=== PATIENT | female | born 1965 | race Caucasian/White ===

== ENCOUNTER 2019-08-02 05:37 | Day surgery (SDC) | payer OTHER ==
[2019-07-30 13:40] VITALS: BMI 28.0
--- NOTE | 2019-08-02 06:59 | HP ---
CHIEF COMPLAINT: PCP: Primary Psychiatrist: HISTORY OF PRESENT ILLNESS: Recent Events: PAST MEDICAL HISTORY: PAST SURGICAL HISTORY: Social History: Smoking: Alcohol: Drugs: Allergies No Known Drug Allergies Allergy (Verified 07/30/19 13:15) HOME MEDICATIONS: Home Medications Medication Instructions Recorded Biotin/Calcium Carbonate [Biotin 1 each PO DAILY 07/30/19 800 Mcg Tablet] Cholecalciferol (Vitamin D3) 50,000 unit PO WEEKLY 07/30/19 [D3-50] Cyanocobalamin (Vitamin B-12) 2,500 mcg PO DAILY 07/30/19 [Vitamin B12] Lamotrigine [Lamictal] 200 mg PO DAILY 07/30/19 [place] Carbonate [Eskalith -] 150 mg PO WEEKLY 07/30/19 Multivitamin/Iron/Folic Acid 1 each PO DAILY 07/30/19 [Centrum Women Tablet] Omeprazole 40 mg PO DAILY 07/30/19 Pramipexole Di-HCl [Mirapex] 0.25 mg PO DAILY 07/30/19 Pyridoxine HCl (B-6) [Vitamin B6] 100 mg PO DAILY 07/30/19 REVIEW OF SYSTEMS CONSTITUTIONAL: Absent: fever, chills, diaphoresis, generalized weakness, malaise, loss of appetite, weight change HEENT: Absent: rhinorrhea, nasal congestion, throat pain, throat swelling, difficulty swallowing, mouth swelling, ear pain, eye pain, visual changes CARDIOVASCULAR: Absent: chest pain, syncope, palpitations, irregular heart rate, lightheadedness , peripheral edema RESPIRATORY: Absent: cough, shortness of breath, dyspnea with exertion, orthopnea, wheezing, stridor, hemoptysis GASTROINTESTINAL: Absent: abdominal pain, abdominal distension, nausea, vomiting, diarrhea, constipation, melena, hematochezia GENITOURINARY: Absent: dysuria, frequency, urgency, hesitancy, hematuria, flank pain, genital pain MUSCULOSKELETAL: Absent: myalgia, arthralgia, joint swelling, back pain, neck pain SKIN: Absent: rash, itching, pallor HEMATOLOGIC/IMMUNOLOGIC: Absent: easy bleeding, easy bruising, lymphadenopathy, frequent infections ENDOCRINE: Absent: unexplained weight gain, unexplained weight loss, heat intolerance, cold intolerance NEUROLOGIC: Absent: headache, focal weakness or paresthesias, dizziness, unsteady gait, seizure, mental status changes, bladder or bowel incontinence PHYSICAL EXAMINATION GENERAL: Awake, alert, and fully oriented, in no acute distress. HEAD: Normal with no signs of trauma. EYES: Pupils equal, round and reactive to light, sclera anicteric, conjunctiva clear. LUNGS: Breath sounds equal, clear to auscultation bilaterally. No wheezes, and no crackles. No accessory muscle use. HEART: Regular rate and rhythm, normal S1 and S2 ABDOMEN: Soft, nontender, not distended MUSCULOSKELETAL: Normal range of motion at all joints. No bony deformities or tenderness. No CVA tenderness. UPPER EXTREMITIES: 2+ pulses, warm, well-perfused. No cyanosis. No clubbing. No peripheral edema. LOWER EXTREMITIES: 2+ pulses, warm, well-perfused. No calf tenderness. No peripheral edema. NEUROLOGICAL: Cranial nerves II-XII intact. Normal speech. ASSESSMENT/PLAN: Cardiac --no cardiac history --Revised Cardiac Risk Index for Pre-Operative Risk: 0 points, 0.4% risk of major cardiac event Pulmonary --no pulmonary history Neurological --no neurological or neurosurgical history; no history of trauma Anesthesia --no reported problems with anesthesia ECT is a low risk procedure. The relative benefits of the planned procedure outweigh the relative risks for this patient at this time.
[2019-08-02] MEDS ORDERED: ONDANSETRON 4 MG/2 ML VIAL IVPUSH PRN (07:24)
[2019-08-02] MEDS ORDERED: MIDAZOLAM HCL 2 MG/2 ML SINGLE DOSE VIAL ONE (07:58)
[2019-08-02 08:11] VITALS: TEMP 98
[2019-08-02 09:45] VITALS: BP 115/71; PULSE 84
== END 2019-08-02 09:25 | disposition home or self-care (01) ==
LOC: FECT 05:37
PROVIDERS: ATTEND Psychiatry & Neurology Psychiatry
PROC: GZB4ZZZ Other Electroconvulsive Therapy (ICD-10-PCS; principal; 2019-08-02 07:15)
DX: F32.9 Major depressive disorder, single episode, unspecified (principal)
CPT/HCPCS: 90870; 94760

== ENCOUNTER 2019-08-07 06:09 | Day surgery (SDC) | payer OTHER ==
[2019-08-06 14:23] VITALS: BMI 28.0
[2019-08-07 06:59] VITALS: TEMP 98.3
[2019-08-07] MEDS ORDERED: LACTATED RINGERS SOLUTION 1,000 ML IV SCH (07:00)
[2019-08-07 08:53] VITALS: BP 112/72; PULSE 71
--- NOTE | 2019-08-08 15:57 | HP ---
CHIEF COMPLAINT: Bipolar disorder Primary Psychiatrist: HISTORY OF PRESENT ILLNESS: 54 year-old female with a PMH significant for GERD, RLS, MARILEE, hyperthyroidism, polycystic ovarian disease and bipolar disorder. Patient has undergone several hundred ECT sessions in the past. Today is her first session at [place]. Recent Events: * none reported PAST MEDICAL HISTORY: GERD Restless leg syndrome Bipolar disorder MARILEE Hyperthyroidism Polycystic ovarian disease PAST SURGICAL HISTORY: Gastric sleeve 2015 Social History: Smoking: former; quit >30 years ago Alcohol: rare Drugs: no Allergies No Known Drug Allergies Allergy (Verified 07/30/19 13:15) HOME MEDICATIONS: Home Medications Medication Instructions Recorded Biotin/Calcium Carbonate [Biotin 1 each PO DAILY 07/30/19 800 Mcg Tablet] Cholecalciferol (Vitamin D3) 50,000 unit PO WEEKLY 07/30/19 [D3-50] Cyanocobalamin (Vitamin B-12) 2,500 mcg PO DAILY 07/30/19 [Vitamin B12] Lamotrigine [Lamictal] 200 mg PO DAILY 07/30/19 [place] Carbonate [Eskalith -] 150 mg PO WEEKLY 07/30/19 Multivitamin/Iron/Folic Acid 1 each PO DAILY 07/30/19 [Centrum Women Tablet] Omeprazole 40 mg PO DAILY 07/30/19 Pramipexole Di-HCl [Mirapex] 0.25 mg PO DAILY 07/30/19 Pyridoxine HCl (B-6) [Vitamin B6 -] 100 mg PO DAILY 07/30/19 REVIEW OF SYSTEMS CONSTITUTIONAL: Absent: fever, chills, diaphoresis, generalized weakness, malaise, loss of appetite, weight change HEENT: Absent: rhinorrhea, nasal congestion, throat pain, throat swelling, difficulty swallowing, mouth swelling, ear pain, eye pain, visual changes CARDIOVASCULAR: Absent: chest pain, syncope, palpitations, irregular heart rate, lightheadedness , peripheral edema RESPIRATORY: Absent: cough, shortness of breath, dyspnea with exertion, orthopnea, wheezing, stridor, hemoptysis GASTROINTESTINAL: Absent: abdominal pain, abdominal distension, nausea, vomiting, diarrhea, constipation, melena, hematochezia GENITOURINARY: Absent: dysuria, frequency, urgency, hesitancy, hematuria, flank pain, genital pain MUSCULOSKELETAL: Absent: myalgia, arthralgia, joint swelling, back pain, neck pain SKIN: Absent: rash, itching, pallor HEMATOLOGIC/IMMUNOLOGIC: Absent: easy bleeding, easy bruising, lymphadenopathy, frequent infections ENDOCRINE: Absent: unexplained weight gain, unexplained weight loss, heat intolerance, cold intolerance NEUROLOGIC: Absent: headache, focal weakness or paresthesias, dizziness, unsteady gait, seizure, mental status changes, bladder or bowel incontinence PHYSICAL EXAMINATION Vital Signs Temperature 98.3 F 08/07/19 08:54 Pulse Rate 71 08/07/19 08:54 Respiratory Rate 18 08/07/19 08:54 Blood Pressure 112/72 08/07/19 08:54 O2 Sat by Pulse Oximetry (%) 99 08/07/19 08:45 GENERAL: Awake, alert, and fully oriented, in no acute distress. HEAD: Normal with no signs of trauma. EYES: Pupils equal, round and reactive to light, sclera anicteric, conjunctiva clear. LUNGS: Breath sounds equal, clear to auscultation bilaterally. No wheezes, and no crackles. No accessory muscle use. HEART: Regular rate and rhythm, normal S1 and S2 ABDOMEN: Soft, nontender, not distended MUSCULOSKELETAL: Normal range of motion at all joints. No bony deformities or tenderness. No CVA tenderness. UPPER EXTREMITIES: 2+ pulses, warm, well-perfused. No cyanosis. No clubbing. No peripheral edema. LOWER EXTREMITIES: 2+ pulses, warm, well-perfused. No calf tenderness. No peripheral edema. NEUROLOGICAL: Cranial nerves II-XII intact. Normal speech. ASSESSMENT/PLAN: 54 year-old female with a PMH significant for GERD, RLS, MARILEE, hyperthyroidism, polycystic ovarian disease and bipolar disorder. Patient has undergone several hundred ECT sessions in the past. Today is her first session at [place]. Cardiac --no cardiac history --Revised Cardiac Risk Index for Pre-Operative Risk: 0 points, 0.4% risk of major cardiac event Pulmonary --no pulmonary history Neurological --no neurological or neurosurgical history; no history of trauma Anesthesia --no reported problems with anesthesia ECT is a low risk procedure. The relative benefits of the planned procedure outweigh the relative risks for this patient at this time. Visit type - Emergency Visit Emergency Visit: No - New Patient This patient is new to me today: Yes Date on this admission: 08/08/19 - Critical Care Critical Care patient: No
== END 2019-08-07 08:55 | disposition home or self-care (01) ==
LOC: FECT 06:09
PROVIDERS: ATTEND Psychiatry & Neurology Psychiatry
PROC: GZB4ZZZ Other Electroconvulsive Therapy (ICD-10-PCS; principal; 2019-08-07 08:15)
DX: F32.9 Major depressive disorder, single episode, unspecified (principal)
CPT/HCPCS: 90870; 94760

== ENCOUNTER 2019-09-13 07:04 | Day surgery (SDC) | payer OTHER ==
[2019-09-13 07:36] VITALS: BMI 28.1
--- NOTE | 2019-09-13 07:41 | HP ---
CHIEF COMPLAINT: Bipolar disorder Primary Psychiatrist: HISTORY OF PRESENT ILLNESS: 54 year-old female with a PMH significant for GERD, RLS, MARILEE, hyperthyroidism, polycystic ovarian disease and bipolar disorder. Patient has undergone several hundred ECT sessions in the past. She presents today for ECT. Recent Events: * none reported PAST MEDICAL HISTORY: GERD Restless leg syndrome Bipolar disorder MARILEE Hyperthyroidism Polycystic ovarian disease PAST SURGICAL HISTORY: Gastric sleeve 2014 Social History: Smoking: former; quit >30 years ago Alcohol: rare Drugs: no Allergies No Known Drug Allergies Allergy (Verified 07/30/19 13:15) HOME MEDICATIONS: Home Medications Medication Instructions Recorded Biotin/Calcium Carbonate [Biotin 1 each PO DAILY 07/30/19 800 Mcg Tablet] Cholecalciferol (Vitamin D3) 50,000 unit PO WEEKLY 07/30/19 [D3-50] Cyanocobalamin (Vitamin B-12) 2,500 mcg PO DAILY 07/30/19 [Vitamin B12] Lamotrigine [Lamictal] 200 mg PO DAILY 07/30/19 [place] Carbonate [Eskalith -] 150 mg PO WEEKLY 07/30/19 Multivitamin/Iron/Folic Acid 1 each PO DAILY 07/30/19 [Centrum Women Tablet] Omeprazole 40 mg PO DAILY 07/30/19 Pramipexole Di-HCl [Mirapex] 0.25 mg PO DAILY 07/30/19 Pyridoxine HCl (B-6) [Vitamin B6 -] 100 mg PO DAILY 07/30/19 REVIEW OF SYSTEMS CONSTITUTIONAL: Absent: fever, chills, diaphoresis, generalized weakness, malaise, loss of appetite, weight change HEENT: Absent: rhinorrhea, nasal congestion, throat pain, throat swelling, difficulty swallowing, mouth swelling, ear pain, eye pain, visual changes CARDIOVASCULAR: Absent: chest pain, syncope, palpitations, irregular heart rate, lightheadedness , peripheral edema RESPIRATORY: Absent: cough, shortness of breath, dyspnea with exertion, orthopnea, wheezing, stridor, hemoptysis GASTROINTESTINAL: Absent: abdominal pain, abdominal distension, nausea, vomiting, diarrhea, constipation, melena, hematochezia GENITOURINARY: Absent: dysuria, frequency, urgency, hesitancy, hematuria, flank pain, genital pain MUSCULOSKELETAL: Absent: myalgia, arthralgia, joint swelling, back pain, neck pain SKIN: Absent: rash, itching, pallor HEMATOLOGIC/IMMUNOLOGIC: Absent: easy bleeding, easy bruising, lymphadenopathy, frequent infections ENDOCRINE: Absent: unexplained weight gain, unexplained weight loss, heat intolerance, cold intolerance NEUROLOGIC: Absent: headache, focal weakness or paresthesias, dizziness, unsteady gait, seizure, mental status changes, bladder or bowel incontinence PHYSICAL EXAMINATION Vital Signs - 24 hr 09/13/19 07:22 Temperature 98.4 F Pulse Rate 63 Respiratory 18 Rate Blood Pressure 112/66 GENERAL: Awake, alert, and fully oriented, in no acute distress. HEAD: Normal with no signs of trauma. EYES: Pupils equal, round and reactive to light, sclera anicteric, conjunctiva clear. LUNGS: Breath sounds equal, clear to auscultation bilaterally. No wheezes, and no crackles. No accessory muscle use. HEART: Regular rate and rhythm, normal S1 and S2 ABDOMEN: Soft, nontender, not distended MUSCULOSKELETAL: Normal range of motion at all joints. No bony deformities or tenderness. No CVA tenderness. UPPER EXTREMITIES: 2+ pulses, warm, well-perfused. No cyanosis. No clubbing. No peripheral edema. LOWER EXTREMITIES: 2+ pulses, warm, well-perfused. No calf tenderness. No peripheral edema. NEUROLOGICAL: Cranial nerves II-XII intact. Normal speech. ASSESSMENT/PLAN: 54 year-old female with a PMH significant for GERD, RLS, MARILEE, hyperthyroidism, polycystic ovarian disease and bipolar disorder. Patient has undergone several hundred ECT sessions in the past. She presents today for ECT. Cardiac --no cardiac history --Revised Cardiac Risk Index for Pre-Operative Risk: 0 points, 0.4% risk of major cardiac event Pulmonary --no pulmonary history Neurological --no neurological or neurosurgical history; no history of trauma Anesthesia --no reported problems with anesthesia ECT is a low risk procedure. The relative benefits of the planned procedure outweigh the relative risks for this patient at this time. Visit type - Emergency Visit Emergency Visit: No - New Patient This patient is new to me today: Yes Date on this admission: 09/13/19 - Critical Care Critical Care patient: No
[2019-09-13] MEDS ORDERED: ONDANSETRON 4 MG/2 ML VIAL IVPUSH PRN (08:46)
[2019-09-13] MEDS ORDERED: LACTATED RINGERS SOLUTION 1,000 ML IV SCH (09:00)
[2019-09-13 09:45] VITALS: BP 108/61; PULSE 61; TEMP 98
== END 2019-09-13 09:45 | disposition home or self-care (01) ==
LOC: FECT 07:04
PROVIDERS: ATTEND Psychiatry & Neurology Psychiatry
PROC: GZB4ZZZ Other Electroconvulsive Therapy (ICD-10-PCS; principal; 2019-09-13 07:30)
DX: F31.30 Bipolar disorder, current episode depressed, mild or moderate severity, unspecified (principal)
CPT/HCPCS: 90870; 94760

== ENCOUNTER 2019-10-25 21:20 | Emergency (ER) | payer OTHER ==
[2019-10-25 21:33] VITALS: BP 112/70; PULSE 72; TEMP 98.8; BMI 28.9
[2019-10-25] MEDS ORDERED: ALBUTEROL SO4 0.083% IH SOL 2.5 MG/3 ML VIAL.NEB. NEB ONE (21:45)
--- NOTE | 2019-10-25 22:08 | PDOC ---
Documentation entered by Jojo Azul SCRIBE, acting as scribe for Fermin Krishnamurthy MD. Fermin Krishnamurthy MD: This documentation has been prepared by the Jorge Alberto guerrero Torie, SCRIBE, under my direction and personally reviewed by me in its entirety. I confirm that the documentation accurately reflects all work, treatment, procedures, and medical decision making performed by me. History of Present Illness - General Chief Complaint: Respiratory Stated Complaint: COUGH Time Seen by Provider: 10/25/19 21:41 History Source: Patient Exam Limitations: No Limitations - History of Present Illness Initial Comments: 10/25/19 21:58 Patient is a 54 year old female with no significant medical history who presents to the ED today with a cough that began 3 days ago. Patient reports she went to an urgent care yesterday and was given a z-pack, reports no relief thus far.Patient also reports some wheezing. General: No fevers or chills, no weakness, no weight loss HEENT: No change in vision. No sore throat,. No ear pain CardioVascular: No chest pain or shortness of breath Respiratory: +cough, +wheezing. Gastrointestinal: no nausea, vomiting, diarrhea or constipation, No rectal bleeding Genitourinary: No dysuria, hematuria, or frequency Musculoskeletal: No joint or muscle pain or swelling Neurologic: No headache, vertigo, dizziness or loss of consciousness Psychiatric: nor depression Skin: No rashes or easy bruising Endocrine: no increased thirst or abnormal weight change Allergic: no skin or latex allergy All other systems reviewed and normal Adult Exam: General: Well-nourished well-developed individual, no acute distress HEENT: Throat: Normal, tonsils normal, no erythema or exudate Neck: Supple, no meningeal signs, no lymphadenopathy Eyes::Pupils equal reactive and round, extraocular motion intact Chest: Pain reproduced on the palpation of the right lower and anterior chest wall. No lesions, swelling, bruising, or visual abnormalities. Cardiac: S1-S2 normal, regular rate and rhythm, no murmurs rubs or gallops Respiratory: Lungs clear to auscultation bilateral Abdomen: Soft, nondistended, normal bowel sounds, nontender to palpation diffusely Extremities: Warm, dry, no cyanosis, clubbing, or edema Skin: No rashes Neuro: Alert and oriented x3, nonfocal exam, grossly intact, normal gait Psych: Normal mood and affect Assessment and plan: This is a 54-year-old female who comes in complaining of cough x3 days. Patient is already on a Z-Jaiden and has some cough medication. However patient says she did have some wheezing earlier there was no wheezing on my exam in the ED but patient was given a nebulizer treatment and discharged with a inhaler. Past History - Past Medical History Allergies/Adverse Reactions: Allergies Allergy/AdvReac Type Severity Reaction Status Date / Time No Known Drug Allergies Allergy Verified 07/30/19 13:15 Home Medications: Ambulatory Orders Biotin/Calcium Carbonate [Biotin 800 Mcg Tablet] 1 each PO DAILY 07/30/19 Cholecalciferol (Vitamin D3) [D3-50] 50,000 unit PO WEEKLY 07/30/19 Cyanocobalamin (Vitamin B-12) [Vitamin B12] 2,500 mcg PO DAILY 07/30/19 Lamotrigine [Lamictal] 200 mg PO DAILY 07/30/19 [place] Carbonate [Eskalith -] 150 mg PO WEEKLY 07/30/19 Multivitamin/Iron/Folic Acid [Centrum Women Tablet] 1 each PO DAILY 07/30/19 Omeprazole 40 mg PO DAILY 07/30/19 Pramipexole Di-HCl [Mirapex] 0.25 mg PO DAILY 07/30/19 Pyridoxine HCl (B-6) [Vitamin B6 -] 100 mg PO DAILY 07/30/19 Albuterol Sulfate Inhaler - [Ventolin HFA Inhaler -] 1 - 2 inh PO QID #1 inhaler 10/25/19 Azithromycin 250 mg PO DAILY 10/25/19 Cancer: No Cardiac Disorders: No COPD: No Diabetes: No Psychiatric Problems: Yes Seizures: No Thyroid Disease: No - Surgical History Abdominal Surgery: Yes (WEIGHT LOSS) - Psycho Social/Smoking Cessation Hx Smoking History: Never smoked Have you smoked in the past 12 months: No If you are a former smoker, when did you quit?: VERY RARE IN HER 20S Hx Alcohol Use: Yes (VERY RARE) Drug/Substance Use Hx: No Substance Use Type: Alcohol Hx Substance Use Treatment: No *Physical Exam - Vital Signs Last Vital Signs Temp Pulse Resp BP Pulse Ox 98.8 F 72 18 112/70 98 10/25/19 21:24 10/25/19 21:24 10/25/19 21:24 10/25/19 21:24 10/25/19 21:24 Discharge - Discharge Information Problems reviewed: Yes Clinical Impression/Diagnosis: Viral upper respiratory infection Condition: Stable Disposition: HOME - Admission No - Additional Discharge Information Prescriptions: Albuterol Sulfate Inhaler - [Ventolin HFA Inhaler -] 1 - 2 inh PO QID #1 inhaler - Follow up/Referral Referrals: Ector Murrieta [Primary Care Provider] - - Patient Discharge Instructions Additional Instructions: Take all your medications as prescribed. You can use your inhaler 1 to 2 puffs every 4-6 hours as needed. Tylenol or Motrin for pain or fevers. Return to the emergency department immediately with ANY new, persistent or worsening symptoms. Continue any medications as previously prescribed by your physician. You should follow up with your primary doctor as soon as possible regarding today's emergency department visit. . Please make sure your doctor reviews the results of your emergency evaluation. Thank you for coming to the Emergency Department today for your care. It was a pleasure to see you today. Please note that your evaluation is INCOMPLETE until you follow-up with your doctor. - Post Discharge Activity
== END 2019-10-25 22:52 | disposition home or self-care (01) ==
LOC: FER 21:20
DX: J06.9 Acute upper respiratory infection, unspecified (principal); Z98.84 Bariatric surgery status; F99 Mental disorder, not otherwise specified
CPT/HCPCS: 99283-25

== ENCOUNTER 2020-07-28 08:00 | Day surgery (SDC) | payer OTHER ==
[2020-07-25 16:41] VITALS: BMI 30.8
[2020-07-28] MEDS ORDERED: LORazepam 0.5 MG TABLET ONE (08:25)
[2020-07-28 10:32] VITALS: PULSE 74
[2020-07-28 11:09] VITALS: TEMP 98.5
[2020-07-28 11:12] VITALS: BP 113/76
== END 2020-07-28 11:15 | disposition home or self-care (01) ==
LOC: FECT 08:00
PROVIDERS: ATTEND Psychiatry & Neurology Psychiatry
PROC: GZB4ZZZ Other Electroconvulsive Therapy (ICD-10-PCS; principal; 2020-07-28 09:30)
DX: F32.9 Major depressive disorder, single episode, unspecified (principal)
CPT/HCPCS: 90870; 94760; C9803; U0003

== ENCOUNTER 2020-07-31 09:36 | Day surgery (SDC) | payer OTHER ==
[2020-07-30 14:00] VITALS: BMI 30.7
[2020-07-31] MEDS ORDERED: KETAMINE HCL 500 MG/10 ML VIAL ONE (10:26)
[2020-07-31] MEDS ORDERED: PROPOFOL 20 ML ONE (10:31)
[2020-07-31] MEDS ORDERED: SUCCINYLCHOLINE CHLORIDE 200 MG/10 ML SYRINGE ONE (10:31)
[2020-07-31] MEDS ORDERED: MIDAZOLAM HCL 2 MG/2 ML SINGLE DOSE VIAL ONE (10:38)
[2020-07-31 11:18] VITALS: TEMP 98.2
[2020-07-31 12:09] VITALS: BP 121/68; PULSE 75
== END 2020-07-31 12:12 | disposition home or self-care (01) ==
LOC: FECT 09:36
PROVIDERS: ATTEND Psychiatry & Neurology Psychiatry
PROC: GZB4ZZZ Other Electroconvulsive Therapy (ICD-10-PCS; principal; 2020-07-31 10:30)
DX: F32.9 Major depressive disorder, single episode, unspecified (principal)
CPT/HCPCS: 90870; 94760; C9803; U0003

== ENCOUNTER → 2020-08-04 | Day surgery (SDC) | payer OTHER ==
[2020-08-01 13:57] VITALS: BMI 28.0
[~2020-08-04] MED LIST: KETAMINE HCL 500 MG/10 ML VIAL ONE
[2020-08-04 14:06] VITALS: TEMP 98.2
[2020-08-04 14:21] VITALS: BP 140/83; PULSE 70
== END | disposition home or self-care (01) ==
LOC: FECT 10:27
PROVIDERS: ATTEND Psychiatry & Neurology Psychiatry
PROC: GZB4ZZZ Other Electroconvulsive Therapy (ICD-10-PCS; principal; 2020-08-04 11:30)
DX: F32.9 Major depressive disorder, single episode, unspecified (principal)
CPT/HCPCS: 90870; 94760; C9803; U0003

== ENCOUNTER 2020-10-02 06:48 | Day surgery (SDC) | payer OTHER ==
[2020-10-02 07:08] VITALS: BMI 28.0
[2020-10-02 07:21] VITALS: TEMP 98
[2020-10-02] MEDS ORDERED: KETAMINE HCL 500 MG/10 ML VIAL ONE (08:06)
[2020-10-02 09:47] VITALS: BP 126/84; PULSE 65
== END 2020-10-02 09:50 | disposition home or self-care (01) ==
LOC: FECT 06:48
PROVIDERS: ATTEND Psychiatry & Neurology Psychiatry
PROC: GZB4ZZZ Other Electroconvulsive Therapy (ICD-10-PCS; principal; 2020-10-02 09:00)
DX: F32.9 Major depressive disorder, single episode, unspecified (principal)
CPT/HCPCS: 90870; 94760

== ENCOUNTER 2020-10-09 05:50 | Day surgery (SDC) | payer OTHER ==
[2020-10-09] MEDS ORDERED: LOCK ITEM NR ONE (06:28)
[2020-10-09 07:00] VITALS: BMI 28.0
[2020-10-09] MEDS ORDERED: KETOROLAC TROMETHAMINE 30 MG/1 ML VIAL ONE (08:04)
[2020-10-09] MEDS ORDERED: KETAMINE HCL 500 MG/10 ML VIAL ONE (08:04)
[2020-10-09 09:09] VITALS: TEMP 98.5
[2020-10-09 09:31] VITALS: BP 122/72; PULSE 69
== END 2020-10-09 09:30 | disposition home or self-care (01) ==
LOC: FECT 05:50
PROVIDERS: ATTEND Psychiatry & Neurology Psychiatry
PROC: GZB4ZZZ Other Electroconvulsive Therapy (ICD-10-PCS; principal; 2020-10-09 08:30)
DX: F32.9 Major depressive disorder, single episode, unspecified (principal)
CPT/HCPCS: 90870; 94760; C9803; U0003

== ENCOUNTER 2020-10-13 07:22 | Day surgery (SDC) | payer OTHER ==
[2020-10-09 10:59] VITALS: BMI 28.0
[2020-10-13] MEDS ORDERED: KETAMINE HCL 500 MG/10 ML VIAL ONE (09:01)
[2020-10-13 10:17] VITALS: TEMP 98.2
[2020-10-13 11:52] VITALS: BP 123/64; PULSE 61
== END 2020-10-13 11:15 | disposition home or self-care (01) ==
LOC: FECT 07:22
PROVIDERS: ATTEND Psychiatry & Neurology Psychiatry
PROC: GZB4ZZZ Other Electroconvulsive Therapy (ICD-10-PCS; principal; 2020-10-13 09:30)
DX: F32.9 Major depressive disorder, single episode, unspecified (principal)
CPT/HCPCS: 90870; 94760

== ENCOUNTER 2021-06-22 10:01 | Day surgery (SDC) | payer OTHER ==
[2021-06-15 10:11] VITALS: BMI 32.9
[2021-06-22 10:48] VITALS: TEMP 97.4
[2021-06-22] MEDS ORDERED: KETAMINE HCL 500 MG/10 ML VIAL ONE (11:18)
[2021-06-22 13:00] VITALS: BP 119/77; PULSE 61
== END 2021-06-22 12:45 | disposition home or self-care (01) ==
LOC: FECT 10:01
PROVIDERS: ATTEND Psychiatry & Neurology Psychiatry
PROC: GZB4ZZZ Other Electroconvulsive Therapy (ICD-10-PCS; principal; 2021-06-22 12:00)
DX: F32.9 Major depressive disorder, single episode, unspecified (principal)
CPT/HCPCS: 90870; 94760; C9803; U0003; U0005

== ENCOUNTER 2021-06-25 06:33 | Day surgery (SDC) | payer OTHER ==
[2021-06-23 14:59] VITALS: BMI 32.9
[2021-06-25] MEDS ORDERED: KETAMINE HCL 500 MG/10 ML VIAL ONE (08:12)
[2021-06-25 09:44] VITALS: BP 134/84; PULSE 77; TEMP 97.9
== END 2021-06-25 09:45 | disposition home or self-care (01) ==
LOC: FECT 06:33
PROVIDERS: ATTEND Psychiatry & Neurology Psychiatry
PROC: GZB4ZZZ Other Electroconvulsive Therapy (ICD-10-PCS; principal; 2021-06-25 08:30)
DX: F32.9 Major depressive disorder, single episode, unspecified (principal)
CPT/HCPCS: 90870; 94760

== ENCOUNTER 2021-06-26 06:10 | Day surgery (SDC) | payer OTHER ==
[2021-06-26 07:33] VITALS: BMI 32.9
[2021-06-26] MEDS ORDERED: KETAMINE HCL 500 MG/10 ML VIAL ONE (08:18)
[2021-06-26] MEDS ORDERED: LIDOCAINE HCL/PF 2% SDV 5ML VIAL ONE (08:24)
[2021-06-26 12:52] VITALS: TEMP 98.5
[2021-06-26 12:56] VITALS: BP 118/70; PULSE 68
== END 2021-06-26 09:50 | disposition home or self-care (01) ==
LOC: FECT 06:10
PROVIDERS: ATTEND Psychiatry & Neurology Psychiatry
PROC: GZB4ZZZ Other Electroconvulsive Therapy (ICD-10-PCS; principal; 2021-06-26 08:00)
DX: F32.9 Major depressive disorder, single episode, unspecified (principal)
CPT/HCPCS: 90870; 94760; C9803; U0003; U0005

== ENCOUNTER 2021-06-29 07:06 | Day surgery (SDC) | payer OTHER ==
[2021-06-25 16:38] VITALS: BMI 32.9
[2021-06-29] MEDS ORDERED: KETAMINE HCL 500 MG/10 ML VIAL ONE (08:19)
[2021-06-29] MEDS ORDERED: PROPOFOL 20 ML ONE (08:21)
[2021-06-29] MEDS ORDERED: SUCCINYLCHOLINE CHLORIDE 200 MG/10 ML SYRINGE ONE (08:21)
[2021-06-29] MEDS ORDERED: KETOROLAC TROMETHAMINE 30 MG/1 ML VIAL ONE (08:21)
[2021-06-29] MEDS ORDERED: LIDOCAINE HCL/PF 2% SDV 5ML VIAL ONE (08:23)
[2021-06-29 09:45] VITALS: TEMP 98.1
[2021-06-29 10:20] VITALS: BP 124/76; PULSE 68
== END 2021-06-29 10:24 | disposition home or self-care (01) ==
LOC: FECT 07:06
PROVIDERS: ATTEND Psychiatry & Neurology Psychiatry
PROC: GZB4ZZZ Other Electroconvulsive Therapy (ICD-10-PCS; principal; 2021-06-29 08:30)
DX: F32.9 Major depressive disorder, single episode, unspecified (principal)
CPT/HCPCS: 90870; 94760; C9803; U0003; U0005

== ENCOUNTER 2021-07-02 06:13 | Day surgery (SDC) | payer OTHER ==
[2021-06-25 16:43] VITALS: BMI 32.9
[2021-07-02] MEDS ORDERED: SUCCINYLCHOLINE CHLORIDE 200 MG/10 ML SYRINGE ONE ×2 (07:04)
[2021-07-02 09:20] VITALS: BP 131/89; PULSE 76; TEMP 97.9
== END 2021-07-02 09:20 | disposition home or self-care (01) ==
LOC: FECT 06:13
PROVIDERS: ATTEND Psychiatry & Neurology Psychiatry
PROC: GZB4ZZZ Other Electroconvulsive Therapy (ICD-10-PCS; principal; 2021-07-02 08:00)
DX: F32.9 Major depressive disorder, single episode, unspecified (principal)
CPT/HCPCS: 90870; 94760

== ENCOUNTER 2021-07-03 06:10 | Day surgery (SDC) | payer OTHER ==
[2021-06-29 16:03] VITALS: BMI 32.9
[2021-07-03] MEDS ORDERED: KETAMINE HCL 500 MG/10 ML VIAL ONE (07:22)
[2021-07-03 08:19] VITALS: TEMP 98.7
[2021-07-03 08:41] VITALS: BP 132/74; PULSE 66
== END 2021-07-03 08:45 | disposition home or self-care (01) ==
LOC: FECT 06:10
PROVIDERS: ATTEND Psychiatry & Neurology Psychiatry
PROC: GZB4ZZZ Other Electroconvulsive Therapy (ICD-10-PCS; principal; 2021-07-03 08:00)
DX: F32.9 Major depressive disorder, single episode, unspecified (principal)
CPT/HCPCS: 90870; 94760; C9803; U0003; U0005

== ENCOUNTER 2021-09-11 06:30 | Day surgery (SDC) | payer OTHER ==
[2021-09-09 10:57] VITALS: BMI 32.5
[2021-09-11] MEDS ORDERED: KETAMINE HCL 500 MG/10 ML VIAL ONE (07:56)
[2021-09-11 08:53] VITALS: TEMP 97.8
[2021-09-11 09:29] VITALS: BP 124/72; PULSE 64
[2021-09-12 17:08] LABS: SARS-CoV-2 NAA Not Detected (Not Detected)
== END 2021-09-11 09:37 | disposition home or self-care (01) ==
LOC: FECT 06:30
PROVIDERS: ATTEND Psychiatry & Neurology Psychiatry
PROC: GZB4ZZZ Other Electroconvulsive Therapy (ICD-10-PCS; principal; 2021-09-11 08:30)
DX: F33.2 Major depressive disorder, recurrent severe without psychotic features (principal)
CPT/HCPCS: 90870; 94760; C9803; U0003; U0005

== ENCOUNTER 2021-09-14 06:11 | Day surgery (SDC) | payer OTHER ==
[2021-09-11 15:40] VITALS: BMI 32.5
[2021-09-14] MEDS ORDERED: KETAMINE HCL 500 MG/10 ML VIAL ONE (09:01)
[2021-09-14] MEDS ORDERED: SUCCINYLCHOLINE CHLORIDE 200 MG/10 ML SYRINGE ONE (09:09)
[2021-09-14] MEDS ORDERED: LIDOCAINE HCL/PF 2% SDV 5ML VIAL ONE (09:10)
[2021-09-14 10:34] VITALS: BP 133/73; PULSE 66; TEMP 98
[2021-09-15 11:09] LABS: SARS-CoV-2 NAA Not Detected (Not Detected)
== END 2021-09-14 10:30 | disposition home or self-care (01) ==
LOC: FECT 06:11
PROVIDERS: ATTEND Psychiatry & Neurology Psychiatry
PROC: GZB4ZZZ Other Electroconvulsive Therapy (ICD-10-PCS; principal; 2021-09-14 08:00)
DX: F33.2 Major depressive disorder, recurrent severe without psychotic features (principal)
CPT/HCPCS: 90870; 94760; C9803; U0003; U0005

== ENCOUNTER 2021-09-17 06:26 | Day surgery (SDC) | payer OTHER ==
[2021-09-14 14:28] VITALS: BMI 32.5
[2021-09-17] MEDS ORDERED: KETAMINE HCL 200 MG/20 ML VIAL ONE (08:23)
[2021-09-17 09:22] VITALS: TEMP 98
[2021-09-17 09:32] VITALS: BP 133/63; PULSE 66
[2021-09-18 15:07] LABS: SARS-CoV-2 NAA Not Detected (Not Detected)
== END 2021-09-17 09:55 | disposition home or self-care (01) ==
LOC: FECT 06:26
PROVIDERS: ATTEND Psychiatry & Neurology Psychiatry
PROC: GZB4ZZZ Other Electroconvulsive Therapy (ICD-10-PCS; principal; 2021-09-17 08:30)
DX: F32.9 Major depressive disorder, single episode, unspecified (principal)
CPT/HCPCS: 90870; 94760; C9803; U0003; U0005

== ENCOUNTER 2021-09-18 05:57 | Day surgery (SDC) | payer OTHER ==
[2021-09-14 14:30] VITALS: BMI 32.5
[2021-09-18] MEDS ORDERED: KETAMINE HCL 500 MG/10 ML VIAL ONE (07:09)
[2021-09-18 08:43] VITALS: BP 118/80; PULSE 60; TEMP 97.8
== END 2021-09-18 09:00 | disposition home or self-care (01) ==
LOC: FECT 05:57
PROVIDERS: ATTEND Psychiatry & Neurology Psychiatry
PROC: GZB4ZZZ Other Electroconvulsive Therapy (ICD-10-PCS; principal; 2021-09-18 09:00)
DX: F33.2 Major depressive disorder, recurrent severe without psychotic features (principal)
CPT/HCPCS: 90870; 94760

== ENCOUNTER 2021-09-21 06:05 | Day surgery (SDC) | payer OTHER ==
[2021-09-15 07:39] VITALS: BMI 32.5
[2021-09-21] MEDS ORDERED: KETAMINE HCL 500 MG/10 ML VIAL ONE (07:24)
[2021-09-21] MEDS ORDERED: PROPOFOL 20 ML ONE ×2 (07:36)
[2021-09-21] MEDS ORDERED: SUCCINYLCHOLINE CHLORIDE 200 MG/10 ML SYRINGE ONE (07:36)
[2021-09-21 07:56] VITALS: TEMP 98.4
[2021-09-21 08:52] VITALS: BP 128/75; PULSE 61
[2021-09-22 11:12] LABS: SARS-CoV-2 NAA Not Detected (Not Detected)
== END 2021-09-21 09:00 | disposition home or self-care (01) ==
LOC: FECT 06:05
PROVIDERS: ATTEND Psychiatry & Neurology Psychiatry
PROC: GZB4ZZZ Other Electroconvulsive Therapy (ICD-10-PCS; principal; 2021-09-21 07:30)
DX: F33.2 Major depressive disorder, recurrent severe without psychotic features (principal)
CPT/HCPCS: 90870; 94760; C9803; U0003; U0005

== ENCOUNTER 2021-09-28 06:17 | Day surgery (SDC) | payer OTHER ==
[2021-09-18 12:40] VITALS: BMI 32.5
[2021-09-28] MEDS ORDERED: KETAMINE HCL 500 MG/10 ML VIAL ONE (07:42)
[2021-09-28 08:39] VITALS: TEMP 97.8
[2021-09-28 09:32] VITALS: BP 132/84; PULSE 61
== END 2021-09-28 09:34 | disposition home or self-care (01) ==
LOC: FECT 06:17
PROVIDERS: ATTEND Psychiatry & Neurology Psychiatry
PROC: GZB4ZZZ Other Electroconvulsive Therapy (ICD-10-PCS; principal; 2021-09-28 08:00)
DX: F32.9 Major depressive disorder, single episode, unspecified (principal)
CPT/HCPCS: 90870; 94760

== ENCOUNTER 2021-10-08 06:18 | Day surgery (SDC) | payer OTHER ==
[2021-09-17 14:47] VITALS: BMI 32.5
[2021-10-08] MEDS ORDERED: ACETAMINOPHEN 325 MG TABLET (FP) ONE (09:05)
[2021-10-08 09:21] VITALS: TEMP 97.9
[2021-10-08 10:32] VITALS: BP 121/70; PULSE 70
== END 2021-10-08 10:05 | disposition home or self-care (01) ==
LOC: FECT 06:18
PROVIDERS: ATTEND Psychiatry & Neurology Psychiatry
PROC: GZB4ZZZ Other Electroconvulsive Therapy (ICD-10-PCS; principal; 2021-10-08 08:30)
DX: F32.9 Major depressive disorder, single episode, unspecified (principal)
CPT/HCPCS: 90870; 94760

== ENCOUNTER 2021-10-19 05:52 | Day surgery (SDC) | payer OTHER ==
[2021-10-19 06:52] VITALS: BMI 31.8
[2021-10-19] MEDS ORDERED: KETAMINE HCL 500 MG/10 ML VIAL ONE (07:47)
[2021-10-19 09:31] VITALS: TEMP 97.6
[2021-10-19 09:32] VITALS: BP 121/72; PULSE 61
== END 2021-10-19 09:50 | disposition home or self-care (01) ==
LOC: FECT 05:52
PROVIDERS: ATTEND Psychiatry & Neurology Psychiatry
PROC: GZB4ZZZ Other Electroconvulsive Therapy (ICD-10-PCS; principal; 2021-10-19 08:00)
DX: F33.2 Major depressive disorder, recurrent severe without psychotic features (principal)
CPT/HCPCS: 90870; 94760

== ENCOUNTER 2021-10-29 06:05 | Day surgery (SDC) | payer OTHER ==
[2021-10-27 17:31] VITALS: BMI 31.8
[2021-10-29] MEDS ORDERED: KETAMINE HCL 500 MG/10 ML VIAL ONE (07:27)
[2021-10-29 08:31] VITALS: TEMP 97.9
[2021-10-29 09:02] VITALS: BP 124/71; PULSE 64
== END 2021-10-29 09:00 | disposition home or self-care (01) ==
LOC: FECT 06:05
PROVIDERS: ATTEND Psychiatry & Neurology Psychiatry
PROC: GZB4ZZZ Other Electroconvulsive Therapy (ICD-10-PCS; principal; 2021-10-29 07:30)
DX: F32.9 Major depressive disorder, single episode, unspecified (principal)
CPT/HCPCS: 90870; 94760

== ENCOUNTER 2021-11-06 05:57 | Day surgery (SDC) | payer OTHER ==
[2021-10-30 15:35] VITALS: BMI 31.8
[2021-11-06] MEDS ORDERED: PROPOFOL 20 ML ONE (06:38)
[2021-11-06] MEDS ORDERED: SUCCINYLCHOLINE CHLORIDE 200 MG/10 ML SYRINGE ONE (06:38)
[2021-11-06] MEDS ORDERED: KETAMINE HCL 500 MG/10 ML VIAL ONE (07:04)
[2021-11-06 07:45] VITALS: TEMP 98.6
[2021-11-06 08:34] VITALS: BP 110/72; PULSE 69
== END 2021-11-06 08:35 | disposition home or self-care (01) ==
LOC: FECT 05:57
PROVIDERS: ATTEND Psychiatry & Neurology Psychiatry
PROC: GZB4ZZZ Other Electroconvulsive Therapy (ICD-10-PCS; principal; 2021-11-06 07:17)
DX: F33.2 Major depressive disorder, recurrent severe without psychotic features (principal)
CPT/HCPCS: 90870; 94760

== ENCOUNTER 2021-11-16 10:14 | Day surgery (SDC) | payer OTHER ==
[2021-11-10 13:18] VITALS: BMI 31.8
[2021-11-16] MEDS ORDERED: KETAMINE HCL 500 MG/10 ML VIAL ONE (12:11)
[2021-11-16] MEDS ORDERED: LIDOCAINE HCL/PF 2% SDV 5ML VIAL ONE (12:15)
[2021-11-16 12:37] VITALS: TEMP 97.3
[2021-11-16] MEDS ORDERED: SUCCINYLCHOLINE CHLORIDE 200 MG/10 ML SYRINGE ONE (13:05)
[2021-11-16 14:11] VITALS: BP 131/77; PULSE 81
[2021-11-17 13:09] LABS: SARS-CoV-2 NAA Not Detected (Not Detected)
== END 2021-11-16 13:45 | disposition home or self-care (01) ==
LOC: FECT 10:14
PROVIDERS: ATTEND Psychiatry & Neurology Psychiatry
PROC: GZB4ZZZ Other Electroconvulsive Therapy (ICD-10-PCS; principal; 2021-11-16 12:22)
DX: F33.2 Major depressive disorder, recurrent severe without psychotic features (principal)
CPT/HCPCS: 90870; 94760; C9803-CS; U0003; U0005

== ENCOUNTER 2021-11-19 05:53 | Day surgery (SDC) | payer OTHER ==
[2021-11-17 10:42] VITALS: BMI 31.8
[2021-11-19] MEDS ORDERED: KETAMINE HCL 500 MG/10 ML VIAL ONE (07:08)
[2021-11-19 07:45] VITALS: TEMP 97.5
[2021-11-19 08:44] VITALS: BP 112/77; PULSE 63
== END 2021-11-19 08:45 | disposition home or self-care (01) ==
LOC: FECT 05:53
PROVIDERS: ATTEND Psychiatry & Neurology Psychiatry
PROC: GZB4ZZZ Other Electroconvulsive Therapy (ICD-10-PCS; principal; 2021-11-19 07:30)
DX: F32.9 Major depressive disorder, single episode, unspecified (principal)
CPT/HCPCS: 90870; 94760

== ENCOUNTER 2021-11-26 06:03 | Day surgery (SDC) | payer OTHER ==
[2021-11-23 16:48] VITALS: BMI 31.8
[2021-11-26] MEDS ORDERED: KETAMINE HCL 500 MG/10 ML VIAL ONE (07:10)
[2021-11-26 08:14] VITALS: TEMP 97.9
[2021-11-26 08:58] VITALS: BP 124/71; PULSE 61
== END 2021-11-26 09:18 | disposition home or self-care (01) ==
LOC: FECT 06:03
PROVIDERS: ATTEND Psychiatry & Neurology Psychiatry
PROC: GZB4ZZZ Other Electroconvulsive Therapy (ICD-10-PCS; principal; 2021-11-26 07:22)
DX: F32.9 Major depressive disorder, single episode, unspecified (principal)
CPT/HCPCS: 90870; 94760

== ENCOUNTER 2021-12-07 06:01 | Day surgery (SDC) | payer OTHER ==
[2021-12-01 07:39] VITALS: BMI 31.8
[2021-12-07] MEDS ORDERED: KETAMINE HCL 500 MG/10 ML VIAL ONE (07:51)
[2021-12-07 09:08] VITALS: TEMP 98.2
[2021-12-07 09:19] VITALS: BP 114/72; PULSE 61
== END 2021-12-07 09:20 | disposition home or self-care (01) ==
LOC: FECT 06:01
PROVIDERS: ATTEND Psychiatry & Neurology Psychiatry
PROC: GZB4ZZZ Other Electroconvulsive Therapy (ICD-10-PCS; principal; 2021-12-07 08:03)
DX: F33.2 Major depressive disorder, recurrent severe without psychotic features (principal)
CPT/HCPCS: 90870; 93005; 94760

== ENCOUNTER 2021-12-10 06:01 | Day surgery (SDC) | payer OTHER ==
[2021-12-08 12:27] VITALS: BMI 31.8
[2021-12-10] MEDS ORDERED: KETAMINE HCL 500 MG/10 ML VIAL ONE (07:36)
[2021-12-10 08:42] VITALS: TEMP 97.7
[2021-12-10 09:11] VITALS: BP 112/65; PULSE 64
[2021-12-11 14:08] LABS: SARS-CoV-2 NAA Not Detected (Not Detected)
== END 2021-12-10 09:10 | disposition home or self-care (01) ==
LOC: FECT 06:01
PROVIDERS: ATTEND Psychiatry & Neurology Psychiatry
PROC: GZB4ZZZ Other Electroconvulsive Therapy (ICD-10-PCS; principal; 2021-12-10 07:52)
DX: F32.9 Major depressive disorder, single episode, unspecified (principal)
CPT/HCPCS: 90870; 94760; C9803-CS; U0003; U0005

== ENCOUNTER 2021-12-14 05:55 | Day surgery (SDC) | payer OTHER ==
[2021-12-14 06:42] VITALS: TEMP 98.1; BMI 31.8
[2021-12-14] MEDS ORDERED: KETAMINE HCL 500 MG/10 ML VIAL ONE (07:27)
[2021-12-14 09:21] VITALS: BP 112/77; PULSE 63
[2021-12-14 09:31] LABS: ALBUMIN 3.5 g/dl (3.4-5.0); CALCIUM 8.7 mg/dl (8.5-10); CREATININE 0.9 mg/dl (0.55-1.3); MAGNESIUM 1.8 mg/dL (1.8-2.4); TOT PROT 6.3 g/dl (6.4-8.2)
[2021-12-14 09:39] LABS: HEMATOCRIT 39.3 % (32.4-45.2); HEMOGLOBIN 13.3 G/dL (10.7-15.3); MCH 28.2 pg (25.7-33.7); MCHC 33.7 g/dl (32.0-36.0); MEAN CELL VOLUME 83.4 fl (80-96); MEAN PLT VOLUME 10.1 fl (7.5-11.1); PLATELET COUNT 156.8 10^3/uL (134-434); RBC 4.71 10^6/uL (3.60-5.2); RDW 15.8 % (11.6-15.6); WHITE BLOOD COUNT 7.2 10^3/uL (4.0-10.8)
[2021-12-14 09:44] LABS: ADD RBC MORPHOLOGY YES
[2021-12-14 10:10] LABS: ANISOCYTOSIS 1+; OVALOCYTE 2+; PLATELET ESTIMATE ADEQUATE; TEAR DROP CELLS 1+
[2021-12-15 12:11] LABS: SARS-CoV-2 NAA Not Detected (Not Detected)
== END 2021-12-14 09:15 | disposition home or self-care (01) ==
LOC: FECT 05:55
PROVIDERS: ATTEND Psychiatry & Neurology Psychiatry
PROC: GZB4ZZZ Other Electroconvulsive Therapy (ICD-10-PCS; principal; 2021-12-14 07:38)
DX: F33.2 Major depressive disorder, recurrent severe without psychotic features (principal)
CPT/HCPCS: 36415; 80053; 83735; 85025; 90870; 94760; C9803-CS; U0003; U0005

== ENCOUNTER 2021-12-18 07:04 | Day surgery (SDC) | payer OTHER ==
[2021-12-14 08:36] VITALS: BMI 31.8
[2021-12-18] MEDS ORDERED: KETAMINE HCL 500 MG/10 ML VIAL ONE (08:26)
[2021-12-18 09:17] VITALS: TEMP 98.1
[2021-12-18 10:45] VITALS: BP 111/62; PULSE 61
[2021-12-19 17:07] LABS: SARS-CoV-2 NAA Not Detected (Not Detected)
== END 2021-12-18 10:15 | disposition home or self-care (01) ==
LOC: FECT 07:04
PROVIDERS: ATTEND Psychiatry & Neurology Psychiatry
PROC: GZB4ZZZ Other Electroconvulsive Therapy (ICD-10-PCS; principal; 2021-12-18 08:36)
DX: F32.9 Major depressive disorder, single episode, unspecified (principal)
CPT/HCPCS: 90870; 94760; C9803-CS; U0003; U0005

== ENCOUNTER 2021-12-21 06:05 | Day surgery (SDC) | payer OTHER ==
[2021-12-18 12:06] VITALS: BMI 31.8
[2021-12-21] MEDS ORDERED: KETAMINE HCL 500 MG/10 ML VIAL ONE (07:43)
[2021-12-21 10:05] VITALS: BP 107/66; PULSE 66; TEMP 98
[2021-12-22 15:09] LABS: SARS-CoV-2 NAA Not Detected (Not Detected)
== END 2021-12-21 09:45 | disposition home or self-care (01) ==
LOC: FECT 06:05
PROVIDERS: ATTEND Psychiatry & Neurology Psychiatry
PROC: GZB4ZZZ Other Electroconvulsive Therapy (ICD-10-PCS; principal; 2021-12-21 08:20)
DX: F33.2 Major depressive disorder, recurrent severe without psychotic features (principal)
CPT/HCPCS: 90870; 94760; C9803-CS; U0003; U0005

== ENCOUNTER 2021-12-24 09:10 | Day surgery (SDC) | payer OTHER ==
[2021-12-18 12:09] VITALS: BMI 31.8
[2021-12-24] MEDS ORDERED: KETAMINE HCL 500 MG/10 ML VIAL ONE (11:14)
[2021-12-24 12:16] VITALS: PULSE 78; TEMP 98.4
[2021-12-24 12:35] VITALS: BP 109/81
== END 2021-12-24 12:55 | disposition home or self-care (01) ==
LOC: FECT 09:10
PROVIDERS: ATTEND Psychiatry & Neurology Psychiatry
PROC: GZB4ZZZ Other Electroconvulsive Therapy (ICD-10-PCS; principal; 2021-12-24 11:24)
DX: F32.9 Major depressive disorder, single episode, unspecified (principal)
CPT/HCPCS: 90870; 94760

== ENCOUNTER 2021-12-25 06:16 | Day surgery (SDC) | payer OTHER ==
[2021-12-18 12:17] VITALS: BMI 31.8
[2021-12-25] MEDS ORDERED: KETAMINE HCL 500 MG/10 ML VIAL ONE (07:58)
[2021-12-25] MEDS ORDERED: KETOROLAC TROMETHAMINE 30 MG/1 ML VIAL ONE (07:58)
[2021-12-25] MEDS ORDERED: ONDANSETRON 4 MG/2 ML VIAL ONE (08:00)
[2021-12-25] MEDS ORDERED: SUCCINYLCHOLINE CHLORIDE 200 MG/10 ML SYRINGE ONE (08:00)
[2021-12-25] MEDS ORDERED: PROPOFOL 20 ML ONE (08:03)
[2021-12-25 08:32] VITALS: TEMP 97.8
[2021-12-25 09:20] VITALS: BP 104/66; PULSE 66
[2021-12-25] MEDS ORDERED: ONDANSETRON 4 MG/2 ML VIAL IVPUSH PRN (10:00)
[2021-12-25] MEDS ORDERED: ACETAMINOPHEN 325 MG TABLET (FP) PO PRN (10:00)
[2021-12-25] MEDS ORDERED: LACTATED RINGERS SOLUTION 1,000 ML IV SCH (10:00)
[2021-12-27 14:11] LABS: SARS-CoV-2 NAA Not Detected (Not Detected)
== END 2021-12-25 09:30 | disposition home or self-care (01) ==
LOC: FECT 06:16
PROVIDERS: ATTEND Psychiatry & Neurology Psychiatry
PROC: GZB4ZZZ Other Electroconvulsive Therapy (ICD-10-PCS; principal; 2021-12-25 08:05)
DX: F32.9 Major depressive disorder, single episode, unspecified (principal)
CPT/HCPCS: 90870; 94760; C9803-CS; U0003; U0005

== ENCOUNTER 2022-05-21 09:40 | Day surgery (SDC) | payer OTHER ==
[2022-05-20 14:06] VITALS: BMI 29.0
[2022-05-21 13:02] VITALS: BP 122/77; RESP 16; TEMP 98
[2022-05-21 13:31] VITALS: PULSE 56
== END 2022-05-21 13:31 | disposition home or self-care (01) ==
LOC: FECT 09:40
PROVIDERS: ATTEND Psychiatry & Neurology Psychiatry
PROC: GZB4ZZZ Other Electroconvulsive Therapy (ICD-10-PCS; principal; 2022-05-21 12:06)
DX: F32.A Depression, unspecified (principal)
CPT/HCPCS: 90870; 94760

== ENCOUNTER 2022-07-06 06:54 | Day surgery (SDC) | payer OTHER ==
[2022-07-06 07:30] VITALS: BMI 30.7
[2022-07-06 08:46] LABS: HEMATOCRIT 41.3 % (32.4-45.2); HEMOGLOBIN 13.1 G/dL (10.7-15.3); MCH 25.4 pg (25.7-33.7); MCHC 31.6 g/dl (32.0-36.0); MEAN CELL VOLUME 80.1 fl (80-96); MEAN PLT VOLUME 9.6 fl (7.5-11.1); PLATELET COUNT 234.9 10^3/uL (134-434); RBC 5.15 10^6/uL (3.60-5.2); RDW 16.3 % (11.6-15.6); WHITE BLOOD COUNT 6.7 10^3/uL (4.0-10.8)
[2022-07-06 08:53] LABS: ALBUMIN 3.6 g/dl (3.4-5.0); BILIRUBIN,TOTAL 1.1 mg/dl (0.2-1); CREATININE 0.8 mg/dl (0.55-1.3); TOT PROT 6.8 g/dl (6.4-8.2)
[2022-07-06] MEDS ORDERED: KETAMINE HCL 500 MG/10 ML VIAL ONE (09:23)
[2022-07-06 10:51] VITALS: RESP 18
[2022-07-06 11:15] VITALS: BP 121/69; PULSE 68; TEMP 98
== END 2022-07-06 11:10 | disposition home or self-care (01) ==
LOC: FECT 06:54
PROVIDERS: ATTEND Psychiatry & Neurology Psychiatry
PROC: GZB4ZZZ Other Electroconvulsive Therapy (ICD-10-PCS; principal; 2022-07-06 09:40)
DX: F32.A Depression, unspecified (principal)
CPT/HCPCS: 36415; 80053; 85027; 90870; 93005; 94760

== ENCOUNTER 2022-07-09 08:00 | Day surgery (SDC) | payer OTHER ==
[2022-07-07 17:52] VITALS: BMI 30.7
[2022-07-09] MEDS ORDERED: KETAMINE HCL 500 MG/10 ML VIAL ONE (09:45)
[2022-07-09 10:44] VITALS: RESP 18; TEMP 97.6
[2022-07-09 10:55] VITALS: BP 115/60; PULSE 70
== END 2022-07-09 11:35 | disposition home or self-care (01) ==
LOC: FECT 08:00
PROVIDERS: ATTEND Psychiatry & Neurology Psychiatry
PROC: GZB4ZZZ Other Electroconvulsive Therapy (ICD-10-PCS; principal; 2022-07-09 09:53)
DX: F32.A Depression, unspecified (principal)
CPT/HCPCS: 90870; 94760

== ENCOUNTER 2022-09-03 08:56 | Day surgery (SDC) | payer OTHER ==
[2022-08-31 16:37] VITALS: BMI 30.7
[2022-09-03] MEDS ORDERED: KETAMINE HCL 500 MG/10 ML VIAL ONE (10:17)
[2022-09-03 11:27] VITALS: RESP 18
[2022-09-03 12:13] VITALS: BP 110/73; PULSE 69; TEMP 98
== END 2022-09-03 12:10 | disposition home or self-care (01) ==
LOC: FECT 08:56
PROVIDERS: ATTEND Psychiatry & Neurology Psychiatry
PROC: GZB4ZZZ Other Electroconvulsive Therapy (ICD-10-PCS; principal; 2022-09-03 10:36)
DX: F32.A Depression, unspecified (principal)
CPT/HCPCS: 90870; 94760

== ENCOUNTER 2022-09-16 09:22 | Day surgery (SDC) | payer OTHER ==
[2022-09-10 08:09] VITALS: BMI 30.7
[2022-09-16] MEDS ORDERED: KETAMINE HCL 500 MG/10 ML VIAL ONE (10:36)
[2022-09-16 12:08] VITALS: RESP 18; TEMP 98
[2022-09-16 12:58] VITALS: BP 122/67; PULSE 72
== END 2022-09-16 12:47 | disposition home or self-care (01) ==
LOC: FECT 09:22
PROVIDERS: ATTEND Psychiatry & Neurology Psychiatry
PROC: GZB4ZZZ Other Electroconvulsive Therapy (ICD-10-PCS; principal; 2022-09-16 10:47)
DX: F32.A Depression, unspecified (principal)
CPT/HCPCS: 90870; 94760

== ENCOUNTER 2022-11-09 07:52 | Day surgery (SDC) | payer OTHER ==
[2022-10-21 15:32] VITALS: BMI 30.7
[2022-11-09] MEDS ORDERED: KETAMINE HCL 500 MG/10 ML VIAL ONE (09:34)
[2022-11-09 10:27] VITALS: PULSE 61; RESP 16; TEMP 97.9
[2022-11-09 10:56] VITALS: BP 110/50
== END 2022-11-09 10:56 | disposition home or self-care (01) ==
LOC: FECT 07:52
PROVIDERS: ATTEND Psychiatry & Neurology Psychiatry
PROC: GZB4ZZZ Other Electroconvulsive Therapy (ICD-10-PCS; principal; 2022-11-09 09:42)
DX: F32.A Depression, unspecified (principal)
CPT/HCPCS: 90870; 94760

== ENCOUNTER 2022-11-11 07:18 | Day surgery (SDC) | payer OTHER ==
[2022-11-09 16:51] VITALS: BMI 30.7
[2022-11-11] MEDS ORDERED: LACTATED RINGERS SOLUTION 1,000 ML IV SCH (08:15)
[2022-11-11] MEDS ORDERED: KETAMINE HCL 500 MG/10 ML VIAL ONE (08:45)
[2022-11-11 09:53] VITALS: TEMP 97.9
[2022-11-11 09:57] VITALS: BP 120/71; PULSE 67; RESP 20
== END 2022-11-11 10:15 | disposition home or self-care (01) ==
LOC: FECT 07:18
PROVIDERS: ATTEND Psychiatry & Neurology Psychiatry
PROC: GZB4ZZZ Other Electroconvulsive Therapy (ICD-10-PCS; principal; 2022-11-11 08:54)
DX: F32.A Depression, unspecified (principal)
CPT/HCPCS: 90870; 94760

== ENCOUNTER 2022-12-28 08:53 | Day surgery (SDC) | payer OTHER ==
[2022-12-27 15:19] VITALS: BMI 30.7
[2022-12-28 10:45] VITALS: TEMP 97.2
[2022-12-28 11:33] VITALS: RESP 18
[2022-12-28 12:00] VITALS: BP 139/80; PULSE 77
[2022-12-28 12:22] LABS: HEMATOCRIT 37.2 % (32.4-45.2); MCH 25.3 pg (25.7-33.7); MCHC 32.4 g/dl (32.0-36.0); MEAN CELL VOLUME 78.3 fl (80-96); MEAN PLT VOLUME 10.9 fl (7.5-11.1); PLATELET COUNT 171.3 10^3/uL (134-434); RBC 4.75 10^6/uL (3.60-5.2); RDW 17.3 % (11.6-15.6); WHITE BLOOD COUNT 6.4 10^3/uL (4.0-10.8)
[2022-12-28 12:27] LABS: ADD RBC MORPHOLOGY YES
[2022-12-28 12:34] LABS: ALBUMIN 3.5 g/dl (3.4-5.0); BILIRUBIN,TOTAL 0.5 mg/dl (0.2-1); CALCIUM 8.4 mg/dl (8.5-10); CREATININE 0.8 mg/dl (0.55-1.3); POTASSIUM 4.2 mmol/L (3.5-5.1); TOT PROT 6.5 g/dl (6.4-8.2)
[2022-12-28 13:30] LABS: ANISOCYTOSIS 1+; OVALOCYTE 1+; PLATELET ESTIMATE ADEQUATE
== END 2022-12-28 12:00 | disposition home or self-care (01) ==
LOC: FECT 08:53
PROVIDERS: ATTEND Psychiatry & Neurology Psychiatry
PROC: GZB4ZZZ Other Electroconvulsive Therapy (ICD-10-PCS; principal; 2022-12-28 10:26)
DX: F33.2 Major depressive disorder, recurrent severe without psychotic features (principal)
CPT/HCPCS: 36415; 80053; 85025; 90870; 93005; 94760

== ENCOUNTER 2023-01-04 07:02 | Day surgery (SDC) | payer OTHER ==
[2022-12-30 07:08] VITALS: BMI 30.7
[2023-01-04] MEDS ORDERED: KETAMINE HCL 500 MG/10 ML VIAL ONE (08:09)
[2023-01-04 09:15] VITALS: RESP 18; TEMP 97.7
[2023-01-04 09:42] VITALS: BP 118/64; PULSE 69
== END 2023-01-04 09:53 | disposition home or self-care (01) ==
LOC: FECT 07:02
PROVIDERS: ATTEND Psychiatry & Neurology Psychiatry
PROC: GZB4ZZZ Other Electroconvulsive Therapy (ICD-10-PCS; principal; 2023-01-04 08:27)
DX: F32.A Depression, unspecified (principal)
CPT/HCPCS: 90870; 94760

== ENCOUNTER 2023-01-14 08:03 | Day surgery (SDC) | payer OTHER ==
[2023-01-11 11:25] VITALS: BMI 30.7
[2023-01-14] MEDS ORDERED: KETAMINE HCL 500 MG/10 ML VIAL ONE (10:59)
[2023-01-14 12:20] VITALS: RESP 16; TEMP 97.7
[2023-01-14 12:26] VITALS: BP 135/71; PULSE 67
== END 2023-01-14 12:29 | disposition home or self-care (01) ==
LOC: FECT 08:03
PROVIDERS: ATTEND Psychiatry & Neurology Psychiatry
PROC: GZB4ZZZ Other Electroconvulsive Therapy (ICD-10-PCS; principal; 2023-01-14 11:12)
DX: F32.A Depression, unspecified (principal)
CPT/HCPCS: 90870; 94760

== ENCOUNTER 2023-01-20 07:32 | Day surgery (SDC) | payer OTHER ==
[2023-01-14 17:16] VITALS: BMI 30.7
[2023-01-20] MEDS ORDERED: KETAMINE HCL 500 MG/10 ML VIAL ONE (08:52)
[2023-01-20 09:56] VITALS: RESP 18; TEMP 97.9
[2023-01-20 10:22] VITALS: BP 119/78; PULSE 69
[2023-01-20] MEDS ORDERED: ACETAMINOPHEN 325 MG TABLET (FP) PO PRN (10:38)
[2023-01-20] MEDS ORDERED: PROMETHAZINE HCL 25 MG/1 ML VIAL IVPB PRN (10:38)
[2023-01-20] MEDS ORDERED: LACTATED RINGERS SOLUTION 1,000 ML IV SCH (10:45)
== END 2023-01-20 10:30 | disposition home or self-care (01) ==
LOC: FECT 07:32
PROVIDERS: ATTEND Psychiatry & Neurology Psychiatry
PROC: GZB4ZZZ Other Electroconvulsive Therapy (ICD-10-PCS; principal; 2023-01-20 09:09)
DX: F32.A Depression, unspecified (principal)
CPT/HCPCS: 90870; 94760

== ENCOUNTER 2023-01-21 10:30 | Day surgery (SDC) | payer OTHER ==
[2023-01-21 11:21] VITALS: BMI 30.2
[2023-01-21] MEDS ORDERED: KETAMINE HCL 500 MG/10 ML VIAL ONE (12:20)
[2023-01-21 13:11] VITALS: TEMP 97.5
[2023-01-21 13:25] VITALS: RESP 18
[2023-01-21 13:55] VITALS: BP 113/77; PULSE 66
== END 2023-01-21 14:15 | disposition home or self-care (01) ==
LOC: FECT 10:30
PROVIDERS: ATTEND Psychiatry & Neurology Psychiatry
PROC: GZB4ZZZ Other Electroconvulsive Therapy (ICD-10-PCS; principal; 2023-01-21 12:35)
DX: F33.2 Major depressive disorder, recurrent severe without psychotic features (principal)
CPT/HCPCS: 90870; 94760

== ENCOUNTER 2023-03-31 07:54 | Day surgery (SDC) | payer OTHER ==
[2023-03-31 08:34] VITALS: BMI 29.8
[2023-03-31] MEDS ORDERED: KETAMINE HCL 500 MG/10 ML VIAL ONE (09:12)
[2023-03-31] MEDS ORDERED: PROPOFOL 40 ML ONE (09:15)
[2023-03-31 10:44] VITALS: RESP 18
[2023-03-31 10:47] VITALS: BP 125/78; PULSE 68; TEMP 98
[2023-03-31] MEDS ORDERED: ONDANSETRON 4 MG/2 ML VIAL IVPUSH PRN (11:51)
[2023-03-31] MEDS ORDERED: LACTATED RINGERS SOLUTION 1,000 ML IV SCH (12:00)
== END 2023-03-31 10:45 | disposition home or self-care (01) ==
LOC: FECT 07:54
PROVIDERS: ATTEND Psychiatry & Neurology Psychiatry
PROC: GZB4ZZZ Other Electroconvulsive Therapy (ICD-10-PCS; principal; 2023-03-31 09:22)
DX: F33.2 Major depressive disorder, recurrent severe without psychotic features (principal)
CPT/HCPCS: 90870; 94760

== ENCOUNTER 2023-04-29 10:39 | Day surgery (SDC) | payer OTHER ==
[2023-04-29 11:15] VITALS: BMI 30.7
[2023-04-29] MEDS ORDERED: KETAMINE HCL 500 MG/10 ML VIAL ONE (11:57)
[2023-04-29 13:45] VITALS: RESP 16; TEMP 98.4
[2023-04-29 13:46] VITALS: BP 126/74; PULSE 66
== END 2023-04-29 13:39 | disposition home or self-care (01) ==
LOC: FECT 10:39
PROVIDERS: ATTEND Psychiatry & Neurology Psychiatry
PROC: GZB4ZZZ Other Electroconvulsive Therapy (ICD-10-PCS; principal; 2023-04-29 12:24)
DX: F32.A Depression, unspecified (principal)
CPT/HCPCS: 90870; 94760

== ENCOUNTER 2023-05-03 09:31 | Day surgery (SDC) | payer OTHER ==
[~2023-05-03 09:31] MED LIST changes: -KETAMINE HCL 500 MG/10 ML VIAL ONE; +LACTATED RINGERS SOLUTION 1,000 ML IV SCH
[2023-05-03 11:01] VITALS: BMI 30.7
[2023-05-03 13:47] VITALS: BP 123/80; PULSE 68; RESP 16; TEMP 97.6
== END 2023-05-03 14:00 | disposition home or self-care (01) ==
LOC: FECT 09:31
PROVIDERS: ATTEND Psychiatry & Neurology Psychiatry
PROC: GZB4ZZZ Other Electroconvulsive Therapy (ICD-10-PCS; principal; 2023-05-03 12:27)
DX: F32.A Depression, unspecified (principal)
CPT/HCPCS: 90870; 94760

== ENCOUNTER 2023-05-10 08:19 | Day surgery (SDC) | payer OTHER ==
[2023-05-06 12:13] VITALS: BMI 30.7
[2023-05-10 11:35] VITALS: RESP 18; TEMP 98
[2023-05-10 11:45] VITALS: BP 120/70; PULSE 70
== END 2023-05-10 12:08 | disposition home or self-care (01) ==
LOC: FECT 08:19
PROVIDERS: ATTEND Psychiatry & Neurology Psychiatry
PROC: GZB4ZZZ Other Electroconvulsive Therapy (ICD-10-PCS; principal; 2023-05-10 10:54)
DX: F33.2 Major depressive disorder, recurrent severe without psychotic features (principal)
CPT/HCPCS: 90870; 94760

== ENCOUNTER 2023-05-24 08:30 | Day surgery (SDC) | payer OTHER ==
[2023-05-18 17:30] VITALS: BMI 30.7
[2023-05-24] MEDS ORDERED: KETAMINE HCL 500 MG/10 ML VIAL ONE (09:40)
[2023-05-24 11:13] VITALS: RESP 18
[2023-05-24 11:31] VITALS: BP 112/56; PULSE 66; TEMP 98
== END 2023-05-24 11:45 | disposition home or self-care (01) ==
LOC: FECT 08:30
PROVIDERS: ATTEND Psychiatry & Neurology Psychiatry
PROC: GZB4ZZZ Other Electroconvulsive Therapy (ICD-10-PCS; principal; 2023-05-24 10:24)
DX: F32.A Depression, unspecified (principal)
CPT/HCPCS: 90870; 94760

== ENCOUNTER 2023-05-26 08:07 | Day surgery (SDC) | payer OTHER ==
[2023-05-24 15:47] VITALS: BMI 30.7
[2023-05-26] MEDS ORDERED: KETAMINE HCL 500 MG/10 ML VIAL ONE (09:08)
[2023-05-26] MEDS ORDERED: SUCCINYLCHOLINE CHLORIDE 200 MG/10 ML SYRINGE ONE (09:41)
[2023-05-26 10:27] VITALS: RESP 16; TEMP 97.8
[2023-05-26 11:18] VITALS: BP 113/73; PULSE 82
== END 2023-05-26 12:20 | disposition home or self-care (01) ==
LOC: FECT 08:07
PROVIDERS: ATTEND Psychiatry & Neurology Psychiatry
PROC: GZB4ZZZ Other Electroconvulsive Therapy (ICD-10-PCS; principal; 2023-05-26 09:24)
DX: F32.A Depression, unspecified (principal)
CPT/HCPCS: 90870; 94760

== ENCOUNTER 2023-07-01 08:31 | Day surgery (SDC) | payer OTHER ==
[2023-07-01 08:35] VITALS: BMI 30.7
[2023-07-01 09:24] LABS: HEMATOCRIT 37.5 % (32.4-45.2); HEMOGLOBIN 11.7 G/dL (10.7-15.3); MCH 23.8 pg (25.7-33.7); MCHC 31.1 g/dl (32.0-36.0); MEAN CELL VOLUME 76.5 fl (80-96); MEAN PLT VOLUME 9.9 fl (7.5-11.1); WHITE BLOOD COUNT 6.8 10^3/uL (4.0-10.8)
[2023-07-01] MEDS ORDERED: PATIENT'S OWN MEDICATION (NON-FORMULARY) (Meloxicam 15 MG Tablet) PO SCH (09:30)
[2023-07-01 09:36] LABS: ALBUMIN 4.1 g/dl (3.4-5.0); BILIRUBIN,TOTAL 0.8 mg/dl (0.2-1); CALCIUM 9.2 mg/dl (8.5-10.1); CREATININE 0.8 mg/dl (0.6-1.3); MAGNESIUM 1.8 mg/dL (1.8-2.4); POTASSIUM 3.8 mmol/L (3.5-5.1); TOT PROT 6.5 g/dl (6.4-8.2)
[2023-07-01] MEDS ORDERED: valACYclovir HCL 500 MG TABLET (FP) PO SCH (10:00)
[2023-07-01] MEDS ORDERED: FELODIPINE 2.5 MG PO SCH (10:00)
[2023-07-01] MEDS ORDERED: PATIENT'S OWN MEDICATION (NON-FORMULARY) (Dextroamphetamine/Amphetamine [Adderall 10 Mg Ta PO SCH (10:00)
[2023-07-01] MEDS ORDERED: PRAMIPEXOLE DIHYDROCHLORIDE 0.5 MG TABLET PO SCH (10:00)
[2023-07-01] MEDS ORDERED: PATIENT'S OWN MEDICATION (NON-FORMULARY) (Omeprazole [Omeprazole] 20 MG Tablet.Dr) PO SCH (10:00)
[2023-07-01] MEDS ORDERED: PATIENT'S OWN MEDICATION (NON-FORMULARY) (Cyanocobalamin (Vitamin B-12) [Vitamin B12] 5,00 PO SCH (10:00)
[2023-07-01] MEDS ORDERED: CHOLECALCIFEROL (VIT D3) 5000 UNITS (125 MCG) CAP PO SCH (10:00)
[2023-07-01] MEDS ORDERED: PATIENT'S OWN MEDICATION (NON-FORMULARY) (Lamotrigine [Lamictal] 150 MG Tablet) PO SCH (10:00)
[2023-07-01] MEDS ORDERED: PATIENT'S OWN MEDICATION (NON-FORMULARY) (Multivitamin/Iron/Folic Acid [Centrum Women Tabl PO SCH (10:00)
[2023-07-01] MEDS ORDERED: PATIENT'S OWN MEDICATION (NON-FORMULARY) (L.Acidoph,Paracasei, B.Lactis [Probiotic] 1 EACH PO SCH (10:00)
[2023-07-01] MEDS ORDERED: KETAMINE HCL 500 MG/10 ML VIAL ONE (12:04)
[2023-07-01 13:33] VITALS: PULSE 71; RESP 18; TEMP 97.8
[2023-07-01 13:34] VITALS: BP 118/71
[2023-07-01] MEDS ORDERED: ALPRAZolam 1 MG TABLET PO SCH (22:00)
[2023-07-01] MEDS ORDERED: PATIENT'S OWN MEDICATION (NON-FORMULARY) (Melatonin [Melatonin] 3 MG Tablet) PO SCH (22:00)
== END 2023-07-01 13:34 | disposition home or self-care (01) ==
LOC: FECT 08:31
PROVIDERS: ATTEND Student in an Organized Health Care Education/Training Program
PROC: GZB4ZZZ Other Electroconvulsive Therapy (ICD-10-PCS; principal; 2023-07-01 12:17)
DX: F32.A Depression, unspecified (principal)
CPT/HCPCS: 36415; 80053; 83735; 85027; 90870; 93005; 94760

== ENCOUNTER 2023-07-07 11:15 | Day surgery (SDC) | payer OTHER ==
[2023-07-06 14:38] VITALS: BMI 30.7
[2023-07-07] MEDS ORDERED: LACTATED RINGERS SOLUTION 1,000 ML IV SCH (12:15)
[2023-07-07] MEDS ORDERED: KETAMINE HCL 500 MG/10 ML VIAL ONE (13:04)
[2023-07-07 14:20] VITALS: TEMP 97.8
[2023-07-07 15:42] VITALS: BP 124/72; PULSE 72; RESP 18
== END 2023-07-07 15:00 | disposition home or self-care (01) ==
LOC: FECT 11:15
PROVIDERS: ATTEND Student in an Organized Health Care Education/Training Program
PROC: GZB4ZZZ Other Electroconvulsive Therapy (ICD-10-PCS; principal; 2023-07-07 13:18)
DX: F32.A Depression, unspecified (principal)
CPT/HCPCS: 90870; 94760

== ENCOUNTER 2023-07-19 11:36 | Day surgery (SDC) | payer OTHER ==
[2023-07-08 12:00] VITALS: BMI 30.7
[2023-07-19] MEDS ORDERED: KETAMINE HCL 100 MG/ML - 5ML VIAL ONE (13:01)
[2023-07-19 13:39] VITALS: RESP 18
[2023-07-19 14:15] VITALS: TEMP 97.6
[2023-07-19 14:35] VITALS: BP 122/72; PULSE 64
== END 2023-07-19 14:40 | disposition home or self-care (01) ==
LOC: FECT 11:36
PROVIDERS: ATTEND Student in an Organized Health Care Education/Training Program
PROC: GZB4ZZZ Other Electroconvulsive Therapy (ICD-10-PCS; principal; 2023-07-19 13:18)
DX: F33.2 Major depressive disorder, recurrent severe without psychotic features (principal)
CPT/HCPCS: 90870; 94760

== ENCOUNTER 2023-07-21 09:18 | Day surgery (SDC) | payer OTHER ==
[2023-07-20 11:55] VITALS: BMI 30.7
[2023-07-21 15:03] VITALS: PULSE 76; TEMP 97.9
[2023-07-21 15:08] VITALS: BP 116/72; RESP 16
== END 2023-07-21 13:30 | disposition home or self-care (01) ==
LOC: FECT 09:18
PROVIDERS: ATTEND Student in an Organized Health Care Education/Training Program
PROC: GZB4ZZZ Other Electroconvulsive Therapy (ICD-10-PCS; principal; 2023-07-21 11:49)
DX: F32.A Depression, unspecified (principal)
CPT/HCPCS: 90870; 94760

== ENCOUNTER 2023-07-22 09:10 | Day surgery (SDC) | payer OTHER ==
[2023-07-20 12:13] VITALS: BMI 30.7
[2023-07-22 12:15] VITALS: RESP 18
[2023-07-22 12:42] VITALS: TEMP 98
[2023-07-22 14:09] VITALS: BP 121/81; PULSE 69
== END 2023-07-22 13:00 | disposition home or self-care (01) ==
LOC: FECT 09:10
PROVIDERS: ATTEND Psychiatry & Neurology Psychiatry
PROC: GZB4ZZZ Other Electroconvulsive Therapy (ICD-10-PCS; principal; 2023-07-22 11:37)
DX: F32.A Depression, unspecified (principal)
CPT/HCPCS: 90870; 94760

== ENCOUNTER → 2023-07-26 | Day surgery (SDC) | payer OTHER ==
[~2023-07-26] MED LIST changes: +KETAMINE HCL 100 MG/ML - 5ML VIAL ONE; -LACTATED RINGERS SOLUTION 1,000 ML IV SCH
[2023-07-26 12:38] VITALS: TEMP 97.8; BMI 30.7
[2023-07-26 14:23] VITALS: BP 115/67; PULSE 74; RESP 16
== END | disposition home or self-care (01) ==
LOC: FECT 11:51
PROVIDERS: ATTEND Psychiatry & Neurology Psychiatry
PROC: GZB4ZZZ Other Electroconvulsive Therapy (ICD-10-PCS; principal; 2023-07-26 13:13)
DX: F33.2 Major depressive disorder, recurrent severe without psychotic features (principal)
CPT/HCPCS: 90870; 94760

== ENCOUNTER 2023-07-28 09:25 | Day surgery (SDC) | payer OTHER ==
[2023-07-27 12:09] VITALS: BMI 30.7
[2023-07-28 12:18] VITALS: RESP 18; TEMP 98
[2023-07-28 12:40] VITALS: BP 121/61; PULSE 66
== END 2023-07-28 12:40 | disposition home or self-care (01) ==
LOC: FECT 09:25
PROVIDERS: ATTEND Student in an Organized Health Care Education/Training Program
PROC: GZB4ZZZ Other Electroconvulsive Therapy (ICD-10-PCS; principal; 2023-07-28 11:17)
DX: F33.2 Major depressive disorder, recurrent severe without psychotic features (principal)
CPT/HCPCS: 90870; 94760

== ENCOUNTER → 2023-07-29 | Day surgery (SDC) | payer OTHER ==
[2023-07-27 12:20] VITALS: BMI 30.7
[~2023-07-29] MED LIST changes: -KETAMINE HCL 100 MG/ML - 5ML VIAL ONE; +KETAMINE HCL 500 MG/10 ML VIAL ONE; +KETOROLAC TROMETHAMINE 30 MG/1 ML VIAL ONE; +ONDANSETRON 4 MG/2 ML VIAL ONE; +PROPOFOL 20 ML ONE; +SUCCINYLCHOLINE CHLORIDE 200 MG/10 ML SYRINGE ONE
[2023-07-29 12:54] VITALS: BP 114/69; PULSE 65; RESP 18; TEMP 97.8
== END | disposition home or self-care (01) ==
LOC: FECT 09:49
PROVIDERS: ATTEND Student in an Organized Health Care Education/Training Program
PROC: GZB4ZZZ Other Electroconvulsive Therapy (ICD-10-PCS; principal; 2023-07-29 11:59)
DX: F33.2 Major depressive disorder, recurrent severe without psychotic features (principal)
CPT/HCPCS: 90870; 94760

== ENCOUNTER 2023-09-27 08:03 | Day surgery (SDC) | payer OTHER ==
[2023-08-23 10:52] VITALS: BMI 30.7
[2023-09-27 10:09] VITALS: RESP 16; TEMP 97.7
[2023-09-27 10:53] VITALS: BP 123/66; PULSE 81
== END 2023-09-27 11:15 | disposition home or self-care (01) ==
LOC: FECT 08:03
PROVIDERS: ATTEND Student in an Organized Health Care Education/Training Program
PROC: GZB4ZZZ Other Electroconvulsive Therapy (ICD-10-PCS; principal; 2023-09-27 09:18)
DX: F32.A Depression, unspecified (principal)
CPT/HCPCS: 90870; 94760

== ENCOUNTER 2023-11-25 08:47 | Day surgery (SDC) | payer OTHER ==
[2023-11-24 14:54] VITALS: BMI 28.0
[2023-11-25] MEDS ORDERED: KETAMINE HCL 100 MG/ML - 5ML VIAL ONE (12:49)
[2023-11-25 14:09] VITALS: RESP 18
[2023-11-25 14:33] VITALS: BP 117/77; PULSE 73; TEMP 97.8
== END 2023-11-25 14:35 | disposition home or self-care (01) ==
LOC: FECT 08:47
PROVIDERS: ATTEND Student in an Organized Health Care Education/Training Program
PROC: GZB4ZZZ Other Electroconvulsive Therapy (ICD-10-PCS; principal; 2023-11-25 13:10)
DX: F32.A Depression, unspecified (principal)
CPT/HCPCS: 90870; 94760

== ENCOUNTER 2023-11-29 10:25 | Day surgery (SDC) | payer OTHER ==
[2023-11-25 16:17] VITALS: BMI 28.0
[2023-11-29] MEDS ORDERED: KETAMINE HCL 100 MG/ML - 5ML VIAL ONE (12:08)
[2023-11-29 13:47] VITALS: RESP 18; TEMP 97.9
[2023-11-29 13:51] VITALS: BP 118/79; PULSE 71
== END 2023-11-29 14:20 | disposition home or self-care (01) ==
LOC: FECT 10:25
PROVIDERS: ATTEND Student in an Organized Health Care Education/Training Program
PROC: GZB4ZZZ Other Electroconvulsive Therapy (ICD-10-PCS; principal; 2023-11-29 12:49)
DX: F32.A Depression, unspecified (principal)
CPT/HCPCS: 90870; 94760

== ENCOUNTER 2023-12-08 08:48 | Day surgery (SDC) | payer OTHER ==
[2023-12-07 14:19] VITALS: BMI 28.0
[2023-12-08] MEDS ORDERED: KETAMINE HCL 100 MG/ML - 5ML VIAL ONE (10:15)
[2023-12-08 12:13] VITALS: BP 111/70; PULSE 69; RESP 18; TEMP 97.7
== END 2023-12-08 12:00 | disposition home or self-care (01) ==
LOC: FECT 08:48
PROVIDERS: ATTEND Psychiatry & Neurology Psychiatry
PROC: GZB4ZZZ Other Electroconvulsive Therapy (ICD-10-PCS; principal; 2023-12-08 10:32)
DX: F32.A Depression, unspecified (principal)
CPT/HCPCS: 90870; 94760

== ENCOUNTER 2024-01-26 09:56 | Day surgery (SDC) | payer OTHER ==
[2024-01-24 16:26] VITALS: BMI 28.0
[2024-01-26 10:44] LABS: HEMATOCRIT 37.5 % (32.4-45.2); HEMOGLOBIN 11.6 G/dL (10.7-15.3); MCH 24.1 pg (25.7-33.7); MEAN CELL VOLUME 77.7 fl (80-96); MEAN PLT VOLUME 10.5 fl (7.5-11.1); PLATELET COUNT 268.1 10^3/uL (134-434); RBC 4.82 10^6/uL (3.60-5.2); RDW 18.7 % (11.6-15.6); WHITE BLOOD COUNT 7.6 10^3/uL (4.0-10.8)
[2024-01-26] MEDS ORDERED: KETAMINE HCL 100 MG/ML - 5ML VIAL ONE (11:02)
[2024-01-26 11:04] LABS: PLATELET ESTIMATE ADEQUATE
[2024-01-26 11:24] LABS: ALBUMIN 4.1 g/dl (3.4-5.0); ALK PHOS 44 U/L (45-117); ANION GAP 8 mmol/L (4-13); BILIRUBIN,TOTAL 0.4 mg/dl (0.2-1); CALCIUM 8.8 mg/dl (8.5-10.1); CHLORIDE 107 mmol/L (98-107); CO2 28 mmol/L (21-32); CREATININE 0.8 mg/dl (0.6-1.3); GLUCOSE,RANDOM 99 mg/dl (74-106); POTASSIUM 4.7 mmol/L (3.5-5.1); SGOT/AST 13 U/L (15-37); SGPT/ALT 18 U/L (7-52); SODIUM 143 mmol/L (136-145); TOT PROT 6.7 g/dl (6.4-8.2)
[2024-01-26 12:40] VITALS: RESP 19; TEMP 97.9
[2024-01-26 12:42] VITALS: BP 112/74; PULSE 77
== END 2024-01-26 13:35 | disposition home or self-care (01) ==
LOC: FECT 09:56
PROVIDERS: ATTEND Student in an Organized Health Care Education/Training Program
PROC: GZB4ZZZ Other Electroconvulsive Therapy (ICD-10-PCS; principal; 2024-01-26 11:29)
DX: F32.A Depression, unspecified (principal)
CPT/HCPCS: 36415; 80053; 85025; 90870; 93005; 93010; 94760

== ENCOUNTER 2024-01-31 09:41 | Day surgery (SDC) | payer OTHER ==
[2024-01-30 12:32] VITALS: BMI 28.0
[2024-01-31] MEDS ORDERED: KETAMINE HCL 100 MG/ML - 5ML VIAL ONE (11:46)
[2024-01-31] MEDS ORDERED: PROMETHAZINE HCL 25 MG/1 ML VIAL IVPB PRN (12:20)
[2024-01-31] MEDS ORDERED: ACETAMINOPHEN 325 MG TABLET (FP) PO PRN (12:20)
[2024-01-31] MEDS ORDERED: LACTATED RINGERS SOLUTION 1,000 ML IV SCH (12:30)
[2024-01-31 12:53] VITALS: RESP 18; TEMP 97.7
[2024-01-31 14:11] VITALS: BP 120/70; PULSE 58
== END 2024-01-31 14:03 | disposition home or self-care (01) ==
LOC: FECT 09:41
PROVIDERS: ATTEND Student in an Organized Health Care Education/Training Program
PROC: GZB4ZZZ Other Electroconvulsive Therapy (ICD-10-PCS; principal; 2024-01-31 12:05)
DX: F32.A Depression, unspecified (principal)
CPT/HCPCS: 90870; 94760

== ENCOUNTER 2024-03-27 07:47 | Day surgery (SDC) | payer OTHER ==
[2024-03-14 14:31] VITALS: BMI 28.0
[2024-03-27 08:10] VITALS: PULSE 78; RESP 18
[2024-03-27] MEDS ORDERED: KETAMINE HCL 100 MG/ML - 5ML VIAL ONE (09:39)
[2024-03-27 15:13] VITALS: BP 118/80; TEMP 97.5
== END 2024-03-27 13:00 | disposition home or self-care (01) ==
LOC: FECT 07:47
PROVIDERS: ATTEND Student in an Organized Health Care Education/Training Program
PROC: GZB4ZZZ Other Electroconvulsive Therapy (ICD-10-PCS; principal; 2024-03-27 10:00)
DX: F32.A Depression, unspecified (principal)
CPT/HCPCS: 90870; 94760

== ENCOUNTER 2024-03-30 08:39 | Day surgery (SDC) | payer OTHER ==
[~2024-03-30 08:39] MED LIST changes: -KETAMINE HCL 500 MG/10 ML VIAL ONE; -KETOROLAC TROMETHAMINE 30 MG/1 ML VIAL ONE; +LACTATED RINGERS SOLUTION 1,000 ML IV SCH; -ONDANSETRON 4 MG/2 ML VIAL ONE; -PROPOFOL 20 ML ONE; -SUCCINYLCHOLINE CHLORIDE 200 MG/10 ML SYRINGE ONE
[2024-03-30 09:15] VITALS: BMI 32.3
[2024-03-30] MEDS ORDERED: KETAMINE HCL 100 MG/ML - 5ML VIAL ONE (10:39)
[2024-03-30] MEDS ORDERED: KETOROLAC TROMETHAMINE 30 MG/1 ML VIAL ONE (10:42)
[2024-03-30] MEDS ORDERED: ONDANSETRON 4 MG/2 ML VIAL ONE (10:42)
[2024-03-30] MEDS ORDERED: SUCCINYLCHOLINE CHLORIDE 200 MG/10 ML SYRINGE ONE (10:42)
[2024-03-30] MEDS ORDERED: DEXAMETHASONE SOD PHOSPHATE 4 MG/1 ML VIAL ONE (10:42)
[2024-03-30 11:03] VITALS: RESP 18
[2024-03-30 11:48] VITALS: BP 117/60; PULSE 65; TEMP 97.5
== END 2024-03-30 12:30 | disposition home or self-care (01) ==
LOC: FECT 08:39
PROVIDERS: ATTEND Student in an Organized Health Care Education/Training Program
PROC: GZB4ZZZ Other Electroconvulsive Therapy (ICD-10-PCS; principal; 2024-03-30 10:50)
DX: F32.A Depression, unspecified (principal)
CPT/HCPCS: 90870; 94760

== ENCOUNTER 2024-04-10 10:40 | Day surgery (SDC) | payer OTHER ==
[2024-04-04 13:25] VITALS: BMI 28.0
[2024-04-10] MEDS ORDERED: KETAMINE HCL 100 MG/ML - 5ML VIAL ONE (12:42)
[2024-04-10] MEDS ORDERED: KETOROLAC TROMETHAMINE 30 MG/1 ML VIAL ONE (12:51)
[2024-04-10 13:57] VITALS: BP 134/75; PULSE 65; RESP 16; TEMP 97.7
== END 2024-04-10 15:35 | disposition home or self-care (01) ==
LOC: FECT 10:40
PROVIDERS: ATTEND Student in an Organized Health Care Education/Training Program
PROC: GZB4ZZZ Other Electroconvulsive Therapy (ICD-10-PCS; principal; 2024-04-10 12:59)
DX: F33.2 Major depressive disorder, recurrent severe without psychotic features (principal)
CPT/HCPCS: 90870; 94760

== ENCOUNTER 2024-04-13 10:24 | Day surgery (SDC) | payer OTHER ==
[2024-04-11 07:51] VITALS: BMI 28.0
[2024-04-13] MEDS ORDERED: KETAMINE HCL 100 MG/ML - 5ML VIAL ONE (12:44)
[2024-04-13 16:04] VITALS: BP 115/74; PULSE 74; RESP 18; TEMP 97.7
== END 2024-04-13 15:00 | disposition home or self-care (01) ==
LOC: FECT 10:24
PROVIDERS: ATTEND Student in an Organized Health Care Education/Training Program
PROC: GZB4ZZZ Other Electroconvulsive Therapy (ICD-10-PCS; principal; 2024-04-13 13:08)
DX: F32.A Depression, unspecified (principal)
CPT/HCPCS: 90870; 94760

== ENCOUNTER 2024-05-31 09:11 | Day surgery (SDC) | payer OTHER ==
[2024-05-31] MEDS ORDERED: KETAMINE HCL 100 MG/ML - 5ML VIAL ONE (11:27)
[2024-05-31 12:53] VITALS: RESP 18; TEMP 97.5
[2024-05-31 13:33] VITALS: BP 118/74; PULSE 82
== END 2024-05-31 13:30 | disposition home or self-care (01) ==
LOC: FECT 09:11
PROVIDERS: ATTEND Student in an Organized Health Care Education/Training Program
PROC: GZB4ZZZ Other Electroconvulsive Therapy (ICD-10-PCS; principal; 2024-05-31 12:00)
DX: F32.A Depression, unspecified (principal)
CPT/HCPCS: 90870; 94760

== ENCOUNTER 2024-07-18 06:49 | Day surgery (SDC) | payer OTHER, MEDICARE ==
[2024-07-18 07:19] VITALS: BMI 27.8
[2024-07-18] MEDS ORDERED: KETAMINE HCL 100 MG/ML - 5ML VIAL ONE (08:18)
[2024-07-18] MEDS ORDERED: KETOROLAC TROMETHAMINE 30 MG/1 ML VIAL ONE (08:18)
[2024-07-18] MEDS ORDERED: SUCCINYLCHOLINE CHLORIDE 200 MG/10 ML SYRINGE ONE (08:18)
[2024-07-18] MEDS ORDERED: PROPOFOL 20 ML ONE (08:18)
[2024-07-18 09:05] VITALS: RESP 16
[2024-07-18 09:06] VITALS: PULSE 64; TEMP 97.7
[2024-07-18 10:28] VITALS: BP 111/60
== END 2024-07-18 10:28 | disposition home or self-care (01) ==
LOC: FECT 06:49
PROVIDERS: ATTEND Student in an Organized Health Care Education/Training Program
PROC: GZB4ZZZ Other Electroconvulsive Therapy (ICD-10-PCS; principal; 2024-07-18 08:26)
DX: F32.A Depression, unspecified (principal)
CPT/HCPCS: 90870; 94760

== ENCOUNTER 2024-10-09 08:14 | Day surgery (SDC) | payer OTHER, MEDICARE ==
[2024-09-11 16:48] VITALS: BMI 28.0
[2024-10-09 08:44] VITALS: RESP 18; TEMP 98
[2024-10-09] MEDS ORDERED: KETAMINE HCL 100 MG/ML - 5ML VIAL ONE (10:38)
[2024-10-09 13:11] VITALS: BP 105/65; PULSE 64
== END 2024-10-09 13:10 | disposition home or self-care (01) ==
LOC: FECT 08:14
PROVIDERS: ATTEND Student in an Organized Health Care Education/Training Program
PROC: GZB4ZZZ Other Electroconvulsive Therapy (ICD-10-PCS; principal; 2024-10-09 11:00)
DX: F32.A Depression, unspecified (principal)
CPT/HCPCS: 90870; 94760

== ENCOUNTER 2024-10-11 10:28 | Day surgery (SDC) | payer OTHER, MEDICARE ==
[2024-10-09 15:01] VITALS: BMI 28.0
[2024-10-11 12:43] VITALS: PULSE 74; RESP 16; TEMP 97.9
[2024-10-11 14:12] VITALS: BP 109/56
== END 2024-10-11 14:05 | disposition home or self-care (01) ==
LOC: FECT 10:28
PROVIDERS: ATTEND Student in an Organized Health Care Education/Training Program
PROC: GZB4ZZZ Other Electroconvulsive Therapy (ICD-10-PCS; principal; 2024-10-11 11:46)
DX: F33.2 Major depressive disorder, recurrent severe without psychotic features (principal)
CPT/HCPCS: 90870; 94760

== ENCOUNTER 2024-12-13 10:53 | Day surgery (SDC) | payer OTHER, MEDICARE ==
[2024-12-05 14:19] VITALS: BMI 26.5
[2024-12-13 11:05] VITALS: PULSE 68
[2024-12-13] MEDS ORDERED: KETAMINE HCL 100 MG/ML - 5ML VIAL ONE (13:07)
[2024-12-13 14:55] VITALS: BP 110/54; TEMP 97.5
[2024-12-13 14:56] VITALS: RESP 18
== END 2024-12-13 15:00 | disposition home or self-care (01) ==
LOC: FECT 10:53
PROVIDERS: ATTEND Student in an Organized Health Care Education/Training Program
PROC: GZB4ZZZ Other Electroconvulsive Therapy (ICD-10-PCS; principal; 2024-12-13 13:21)
DX: F32.A Depression, unspecified (principal)
CPT/HCPCS: 90870; 94760

== ENCOUNTER 2025-02-15 08:05 | Day surgery (SDC) | payer OTHER, MEDICARE ==
[2025-02-15 08:23] VITALS: BMI 27.4
[2025-02-15] MEDS ORDERED: KETAMINE HCL 100 MG/ML - 5ML VIAL ONE (10:33)
[2025-02-15 11:48] VITALS: RESP 16
[2025-02-15 12:05] VITALS: PULSE 66; TEMP 97.3
[2025-02-15 12:31] VITALS: BP 107/59
== END 2025-02-15 12:20 | disposition home or self-care (01) ==
LOC: FECT 08:05
PROVIDERS: ATTEND Student in an Organized Health Care Education/Training Program
PROC: GZB4ZZZ Other Electroconvulsive Therapy (ICD-10-PCS; principal; 2025-02-15 10:46)
DX: F32.A Depression, unspecified (principal)
CPT/HCPCS: 90870; 93005; 93010; 94760